=== PATIENT | male | born 1980 | race Asian ===

== ENCOUNTER 2023-01-29 20:40 | Emergency (ER) | payer MEDICAID ==
[~2023-01-29] VITALS: Ht 175.3 cm; Wt 71.0 kg
[2023-01-29 20:47] VITALS: BP 158/88
== END 2023-01-29 21:38 | disposition home or self-care (01) ==
LOC: ER 20:40
DX: M79.602 Pain in left arm (principal); V49.9XXA Car occupant (driver) (passenger) injured in unspecified traffic accident, initial encounter; Y93.89 Activity, other specified; Y92.89 Other specified places as the place of occurrence of the external cause; Y99.8 Other external cause status
CPT/HCPCS: 99283